=== PATIENT | female | born 1990 | race Caucasian/White ===

== ENCOUNTER 2017-12-11 13:47 | Emergency (ER) | payer OTHER ==
[2017-12-11] MEDS ORDERED: KETOROLAC 15 MG/1 ML SDV IVP ONE (14:15)
[2017-12-11] MEDS ORDERED: NS 1,000 ML IV ONE (14:15)
[2017-12-11] MEDS ORDERED: ONDANSETRON 4 MG/2 ML VIAL IVP ONE (14:15)
[2017-12-11] MEDS ORDERED: FAMOTIDINE 20 MG in NS 100 ML IV ONE (14:15)
--- NOTE | 2017-12-11 14:18 | EDPHY ---
H & P Stated Complaint: Pt. 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 Surg- - Social History Smoking Status: Current every day smoker Time Seen by Provider: 12/11/17 14:01 HPI/ROS: Chief Complaint: Abdominal pain HPI: 27-year-old woman with a history of irritable bowel syndrome and gastroparesis presented left upper abdominal pain which began today. She has episodes frequently, the last being 2 days ago but not this severe. She has had nausea vomiting with some diarrhea. No blood or coffee-grounds in her emesis. No dark black tarry stools or blood. She is also currently being treated for bacterial vaginosis and with doxycycline. Denies any new metal discharge. Some mild urinary urgency and frequency. She is currently taking doxycycline and Flagyl. No fevers or chills. No chest pain or shortness of breath. No lightheadedness or fainting. Pain is currently about a 8/10. There are no aggravating or alleviating factors. She is currently in a rehab facility for methamphetamine and alcohol and marijuana. Has last used any substances and October 26. She is currently in a residential rehab program. ROS: 10 point Review of Systems is negative except as noted in the HPI. PMH: Gastroparesis, polysubstance abuse Social History: Positive smoking, history of polysubstance abuse Family History: non-contributory Physical Exam: Gen: Awake, Alert, No Distress HEENT: Nose: no rhinorrhea Eyes: PERRLA, EOMI Mouth: Moist mucosa Neck: Supple, no JVD Chest: nontender, lungs clear to auscultation Heart: S1, S2 normal, no murmur Abd: Soft, moderate epigastric tenderness, no guarding Back: no CVA tenderness, no midline tenderness Ext: no edema, non-tender Skin: no rash Neuro: CN II-XII intact, Sensation grossly intact, Strength 5/5 in bilateral upper and lower extremities (Demarco Bee) Constitutional: Initial Vital Signs Temperature (C) 36.7 C 12/11/17 14:04 Heart Rate 63 12/11/17 14:04 Respiratory Rate 16 12/11/17 14:04 Blood Pressure 103/64 12/11/17 14:04 O2 Sat (%) 97 12/11/17 14:04 O2 Delivery Mode Room Air Allergies/Adverse Reactions: adhesive tape Allergy (Verified 12/11/17 14:01) bee venom protein (honey bee) Allergy (Verified 12/11/17 14:00) grapefruit Allergy (Verified 12/11/17 14:00) grass pollen Allergy (Verified 12/11/17 14:00) Penicillins Allergy (Verified 12/11/17 14:00) pineapple Allergy (Verified 12/11/17 14:00) Home Medications: Medication Instructions Recorded Cetirizine HCl [Zyrtec] 11/30/17 Cyproheptadine HCl 11/30/17 Maxalt 11/30/17 Naltrexone 11/30/17 Promethazine HCl 11/30/17 Propranolol HCl 11/30/17 Cyclobenzaprine 12/11/17 Depakote 12/11/17 Doxycycline Hyclate 12/11/17 Flagyl 500 mg (*) 12/11/17 Guaifenesin 12/11/17 Hydroxyzine HCl 12/11/17 Tylenol 12/11/17 Medical Decision Making ED Course/Re-evaluation: Pt s/o to Dr aDmico pending symptom improvement and lab results. (Demarco Bee ) Assumed care from Dr. Gonzalez pending results of labs. Patient's chemistries were all within normal limits. On re-evaluation she was feeling somewhat better. Patient states she has been having some watery nonbloody diarrhea. She is no longer nauseated. As she complains of some lower abdominal pain. Exam showed positive bowel sounds and minimal tenderness. Patient felt like she could take oral fluids and crackers. So she was given a p.o. Challenge of soda and crackers which she tolerated well.. Lipase was within normal limits. At this point there is no evidence of significant systemic toxicity or surgical pathology. She was discharged home in improved condition. (Lindsey Damico) - Data Points Laboratory Results: 12/11/17 12/11/17 14:39 14:25 POC Sodium 142 mEq/L mEq/L (135-145) POC Potassium 3.6 mEq/L mEq/L (3.3-5.0) POC Chloride 105.0 mEq/L mEq/L (97-110) POC Total CO2 24 mEq/L mEq/L (22-31) POC BUN 10 mg/dL mg/dL (7-23) POC Creatinine 1.0 mg/dL mg/dL (0.6-1.0) POC Glucose 84 mg/dL mg/dL (70-100) POC Calcium 10.0 mg/dL mg/dL (8.5-10.4) POC Total Bilirubin 0.7 mg/dL mg/dL (0.1-1.4) POC AST 32 IU/L IU/L (14-46) POC ALT 28 IU/L IU/L (9-52) POC Alk Phosphatase 55 IU/L IU/L (38-126) POC Total Protein 7.8 g/dL g/dL (6.3-8.2) POC Albumin 4.0 g/dL g/dL (3.5-5.0) Lipase 61 IU/L IU/L (23-300) Medications Given: Discontinued Medications Sodium Chloride (Ns) 1,000 mls @ 0 mls/hr IV ONCE ONE; Wide Open PRN Reason: Protocol Stop: 12/11/17 14:16 Last Admin: 12/11/17 14:27 Dose: 1,000 mls Famotidine 20 mg/ Sodium (Chloride) 102 mls @ 408 mls/hr IV EDNOW ONE Stop: 12/11/17 14:29 Last Admin: 12/11/17 14:35 Dose: 102 mls Ketorolac Tromethamine (Toradol) 15 mg IVP EDNOW ONE Stop: 12/11/17 14:16 Last Admin: 12/11/17 14:33 Dose: 15 mg Ondansetron HCl (Zofran) 4 mg IVP EDNOW ONE Stop: 12/11/17 14:16 Last Admin: 12/11/17 14:31 Dose: 4 mg Point of Care Test Results: CBC CBC Collection Date 12/11/17 CBC Collection Time 14:25 WBC 6.3 RBC 4.37 HGB 14.2 HCT 42.8 PLT 262 Neut # 3.6 Neut 58.3 LYMPH # 2.3 LYMPH 36.0 Other WBC # 0.4 Other WBC 5.7 MCV 97.9 Chemistry 12/11/17 14:39 POC Sodium 142 mEq/L mEq/L (135-145) POC Potassium 3.6 mEq/L mEq/L (3.3-5.0) POC Chloride 105.0 mEq/L mEq/L (97-110) POC Total CO2 24 mEq/L mEq/L (22-31) POC BUN 10 mg/dL mg/dL (7-23) POC Creatinine 1.0 mg/dL mg/dL (0.6-1.0) POC Glucose 84 mg/dL mg/dL (70-100) POC Calcium 10.0 mg/dL mg/dL (8.5-10.4) POC Total Bilirubin 0.7 mg/dL mg/dL (0.1-1.4) POC AST 32 IU/L IU/L (14-46) POC ALT 28 IU/L IU/L (9-52) POC Alk Phosphatase 55 IU/L IU/L (38-126) POC Total Protein 7.8 g/dL g/dL (6.3-8.2) POC Albumin 4.0 g/dL g/dL (3.5-5.0) Urine Collection Date 12/11/17 Collection Time 14:25 HCG Results Negative Urine Dip Collection Date 12/11/17 Collection Time 14:25 Specific Herminie (1.002-1.030) 1.020 PH (5.0-7.5) 6.0 Leukocytes (Negative) 1+ Nitrites (Negative) Negative Protein (Negative) Negative Glucose (Negative) Negative Ketones (Negative) 2+ Urobilnogen (0.2-1.0 EU) 0.2 Bilirubin (Negative) Negative Blood (Negative) Negative Departure - Departure Disposition: Home, Routine, Self-Care Clinical Impression: Abdominal pain Qualifiers: Abdominal location: unspecified location Qualified Code(s): R10.9 - Unspecified abdominal pain Diarrhea Qualifiers: Diarrhea type: unspecified type Qualified Code(s): R19.7 - Diarrhea, unspecified Condition: Good Instructions: Acute Abdominal Pain (ED) Referrals: NONE *PRIMARY CARE P,. [Primary Care Provider] - As per Instructions
[2017-12-11 16:51] VITALS: BP 102/60
== END 2017-12-11 16:37 | disposition home or self-care (01) ==
LOC: CED 13:47
DX: R10.9 Unspecified abdominal pain (principal); R19.7 Diarrhea, unspecified; E86.9 Volume depletion, unspecified; F17.200 Nicotine dependence, unspecified, uncomplicated
CPT/HCPCS: 80053-PO; 96374; J1885; J2405

== ENCOUNTER → 2018-08-14 | Outpatient (CLI) | payer MEDICAID | LOC: CLAB 13:56 | PROVIDERS: ATTEND Family Medicine | DX: M54.5 Low back pain (principal); M41.9 Scoliosis, unspecified | CPT/HCPCS: 72100-PO ==